=== PATIENT | male | born 1980 | race Two or more races ===

== ENCOUNTER 2022-12-06 03:34 | Emergency (ER) | payer MEDICAID, OTHER, SELFPAY ==
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
[2022-12-06 03:44] VITALS: BP 128/76; PULSE 62; RESP 18; TEMP 36.7; O2SAT 97
[2022-12-06 04:01] VITALS: BP 128/76; BP 131/86; PULSE 60; PULSE 64; RESP 16; TEMP 36.9; O2SAT 98; O2SAT 99; BMI 26.6
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
--- NOTE | 2022-12-06 06:32 | PC.NURSE ---
pt a&o,no sob or chest pain, no sign of distress, Reviewed discharge instructions with pt. pt verbalized understanding.
== END 2022-12-06 06:33 | disposition home or self-care (01) ==
PROVIDERS: Emergency Provider Emergency Medicine
DX: S20.219A Contusion of unspecified front wall of thorax, initial encounter (principal); V43.52XA Car driver injured in collision with other type car in traffic accident, initial encounter; Y93.89 Activity, other specified; Y92.414 Local residential or business street as the place of occurrence of the external cause; Y99.9 Unspecified external cause status
CPT/HCPCS: 71046; 99283; 99284

== ENCOUNTER 2022-12-06 06:39 | Outpatient (REF) | payer OTHER, MEDICAID, SELFPAY ==
--- NOTE | ~2022-12-06 | XR_ITS ---
EXAMINATION: XR CHEST CLINICAL INFORMATION: Positive quantiferon. COMPARISON: Chest radiographs 12/06/2022 TECHNIQUE: 2 views of the chest were obtained. FINDINGS: The lungs are clear. There is no airspace opacity, airspace consolidation, pleural reaction, or effusion. The costophrenic sulci are clear. The heart is normal in size. The hilar and mediastinal contours and visualized bony structures are unremarkable. XR/XR chest 2V IMPRESSION: Unremarkable examination.
== END 2022-12-06 06:40 | disposition home or self-care (01) ==
LOC: HO.XRAY 06:39
PROVIDERS: Visit Provider Internal Medicine Infectious Disease
DX: R76.12 Nonspecific reaction to cell mediated immunity measurement of gamma interferon antigen response without active tuberculosis (principal)
CPT/HCPCS: 71046

== ENCOUNTER 2023-02-04 10:39 | Outpatient (REF) | payer MEDICAID, OTHER, SELFPAY ==
[2023-02-04 12:25] LABS: Alanine Aminotransferase 24 U/L (0-40); Alkaline Phosphatase 56 U/L (39-117); Anion Gap 13 (12-20); Aspartate Amino Transferase 20 U/L (5-37); Bilirubin Total 0.2 mg/dL (0.0-1.0); Blood Urea Nitrogen 12 mg/dL (9-16); Calcium 8.9 mg/dL (8.4-10.2); Carbon Dioxide 28 mmol/L (22-29); Chloride 107 mmol/L (96-108); Estimated Glomerular Filt Rate > 60; Glucose Random 83 mg/dL (60-115); Magnesium 2.2 mg/dL (1.6-2.6); Sodium 144 mmol/L (135-145); Total Protein 6.9 g/dL (6.5-8.0)
== END 2023-02-04 10:40 | disposition home or self-care (01) ==
LOC: HO.HHCL 10:39
PROVIDERS: Visit Provider Student in an Organized Health Care Education/Training Program
DX: Z22.7 Latent tuberculosis (principal)
CPT/HCPCS: 36415; 80053; 83735

== ENCOUNTER 2023-07-11 15:40 | Outpatient (REF) | payer OTHER, SELFPAY | END 2023-07-11 15:41 | disposition home or self-care (01) | LOC: HO.HHCL 15:40 | PROVIDERS: Visit Provider Student in an Organized Health Care Education/Training Program | DX: Z22.7 Latent tuberculosis (principal) | CPT/HCPCS: 36415; 80053 ==

== ENCOUNTER 2024-05-13 15:40 | Outpatient (REF) | payer OTHER, SELFPAY ==
[2024-05-13 17:53] LABS: Hematocrit 41.5 % (42.0-52.0); Hemoglobin 14.9 g/dl (14.0-18.0); Mean Corpuscular HGB Conc 35.9 g/dl (31.0-36.0); Mean Corpuscular Hemoglobin 29.2 pg (27.0-33.0); Mean Corpuscular Volume 81.4 fL (80.0-98.0); Mean Platelet Volume 10.4 fL (9.4-12.4); Platelet Count 345 X10*3/uL (160-400); Red Cell Distribution Width 12.6 % (11.0-16.0)
[2024-05-13 18:14] LABS: Alanine Aminotransferase 45 U/L (0-40); Albumin Level 4.4 g/dL (3.5-5.0); Alkaline Phosphatase 67 U/L (39-117); Anion Gap 12 (12-20); Aspartate Amino Transferase 35 U/L (5-37); Bilirubin Total 0.4 mg/dL (0.0-1.0); Blood Urea Nitrogen 15 mg/dL (9-16); Calcium 9.5 mg/dL (8.4-10.2); Carbon Dioxide 27 mmol/L (22-29); Chloride 102 mmol/L (96-108); Cholesterol 182 mg/dL (<200); Estimated Glomerular Filt Rate > 60; Glucose Random 97 mg/dL (60-115); HDL Cholesterol 61 mg/dL (>40); LDL Cholesterol Calculated 106 mg/dL (<100); Sodium 138 mmol/L (135-145); Total Protein 7.9 g/dL (6.5-8.0); Triglycerides 78 mg/dL (<150)
[2024-05-13 18:24] LABS: Creatinine Urine 84.55 mg/dL; Microalbumin Urine < 5.0 mg/L
[2024-05-13 18:30] LABS: TSH reflex Free T4 0.58 uIU/mL (0.32-4.0)
[2024-05-14 03:54] LABS: Syphilis Screen Nonreactive (Nonreactive)
[2024-05-14 04:10] LABS: HBS Num1 23.08 mIU/mL (0-7.99); HBc Num1 0.18 S/CO (0.00-0.79); HBsAGNum1 0.36 S/CO (0.00-0.99); HIV AB/AG Nonreactive (Nonreactive); HIV Num 1 0.06 S/CO (0.00-0.99); Hepatitis B Core Antibody Nonreactive (Nonreactive); Hepatitis B Surface Antigen Negative (Negative); ~HepC Num1 0.18 S/CO (0.00-0.79); ~Hepatitis B Surface Antibody REACTIVE (Nonreactive); ~Hepatitis C Antibody Nonreactive (Nonreactive)
[2024-05-14 05:20] LABS: CT PCR NOT DETECTED (Not Detect.); Estimated Average Glucose 120 mg/dL; Hemoglobin A1C 156.0151 umol/L; Hemoglobin A1c % 5.8 % (<6.0); NG PCR NOT DETECTED (Not Detect.); Total Hemoglobin (HGBA1C) 3912.3724 umol/L
== END 2024-05-13 15:41 | disposition home or self-care (01) ==
LOC: HO.HHCL 15:40
PROVIDERS: Visit Provider Student in an Organized Health Care Education/Training Program
DX: Z00.00 Encounter for general adult medical examination without abnormal findings (principal); Z13.1 Encounter for screening for diabetes mellitus
CPT/HCPCS: 36415; 80053; 80061; 82570; 83036; 84443; 85027; 86704; 86706; 86780; 86803; 87340; 87389; 87491; 87591

== ENCOUNTER 2024-05-17 15:02 | Outpatient (REF) | payer SELFPAY ==
[2024-05-17 16:45] LABS: Alanine Aminotransferase 42 U/L (0-40); Albumin Level 4.3 g/dL (3.5-5.0); Alkaline Phosphatase 62 U/L (39-117); Anion Gap 12 (12-20); Aspartate Amino Transferase 29 U/L (5-37); Bilirubin Total 0.3 mg/dL (0.0-1.0); Blood Urea Nitrogen 14 mg/dL (9-16); Calcium 9.6 mg/dL (8.4-10.2); Carbon Dioxide 32 mmol/L (22-29); Chloride 99 mmol/L (96-108); Estimated Glomerular Filt Rate > 60; Glucose Random 90 mg/dL (60-115); Magnesium 1.7 mg/dL (1.6-2.6); Potassium 3.4 mmol/L (3.3-5.1); Sodium 140 mmol/L (135-145); Total Protein 7.6 g/dL (6.5-8.0)
== END 2024-05-17 15:03 | disposition home or self-care (01) ==
LOC: HO.HHCL 15:02
PROVIDERS: Visit Provider Student in an Organized Health Care Education/Training Program
DX: E87.6 Hypokalemia (principal)
CPT/HCPCS: 36415; 80053; 83735

== ENCOUNTER 2024-08-26 11:16 | Emergency (ER) | payer OTHER, SELFPAY ==
--- NOTE | ~2024-08-26 | XR_ITS ---
EXAMINATION: XR CLAVICLE, LEFT CLINICAL INFORMATION: known fx, worsening pain COMPARISON: None available. TECHNIQUE: Two views of the left clavicle. FINDINGS: There is a comminuted obliquely oriented mid clavicular diaphyseal fracture. There are 2 small butterfly fragments present . No significant bayoneting or override. There is approximately 1.6 cm of inferior displacement of the distal fragment. No significant angulation. No additional fractures. The AC joint appears intact. There is mild soft tissue swelling of the supraclavicular region. XR/XR clavicle LT IMPRESSION: 1. Comminuted mid diaphyseal clavicular fracture with 1.6 cm inferior displacement of the distal fragment. Electronically signed by: Micky Gomez MD 08/26/2024 12:59 PM [facility]
--- NOTE | 2024-08-26 11:43 | ED.GENADULT ---
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 Patient fell at work on 08/24, was seen at [facility] yesterday and diagnosed with a closed displaced fx of acromial end of L clavicle. Was prescribed Tramadol and ibuprofen but states his pain is severe and the medications are not helping. Did not attempt to follow up with [facility] today. Has appointment with the specialist on 09/01. Pain worse with movement of left arm. Arrives with left arm in a sling. Complains of tingling to left arm. MD complaint: clavicle fracture Onset (ago): day(s) Related Data Previous Rx's ?Medication ?Instructions ?Recorded oxycodone 5 mg tablet 5 mg PO Q8H PRN severe pain (scale 08/26/24 score 7-10) #9 tabs Allergies Allergy/AdvReac Type Severity Reaction Status Date / Time No Known Allergies Allergy Verified 08/26/24 12:03 Review of Systems Review of Systems: As per HPI Yes all other systems are reviewed and are negative Constitutional: Constitutional: Reports as per HPI Physical Exam ED Vital Signs: Vital Signs - 24 hr 08/26/24 11:58 08/26/24 15:01 Temperature 98.6 F 97.9 F Pulse Rate 86 68 Respiratory Rate 16 16 Blood Pressure 146/90 H 140/85 H Pulse Oximetry 99 98 Oxygen Delivery Method Room Air Room Air BMI result Body Mass Index 28.3 Vital signs have been reviewed and appear to be correct. Blood pressure elevated. Heart rate normal. Respiratory rate normal. Temperature normal. Oxygen saturation normal. Const General: cooperative, healthy appearing and no acute distress Orientation/consciousness: oriented to person, oriented to place, oriented to time and patient oriented x3 Limitations: no limitations HENMT Head: Yes normocephalic and Yes atraumatic Ears: external ears normal General nose exam: Normal external nose present Face and sinus: Yes face symmetric Mouth: oropharynx normal and moist mucous membranes Throat: Yes uvula midline Eyes Pupils: Equal, round and reactive pupils present Neck Neck: Yes normal visual inspection and Yes supple Resp Effort & Inspection: normal respiratory effort and able to speak in complete sentences Auscultation: clear to auscultation bilaterally Cardio Rate: regular rate Rhythm: regular rhythm Heart sounds: S1 normal heart sound present and S2 normal heart sound present GI Palpation (GI): Soft to palpation and nontender Auscultation: normoactive bowel sounds General: Yes no CVA tenderness Back/Spine/Pelvis Back: no CVA tenderness Skin General skin exam: elasticity normal and turgor normal Neuro General: oriented to person, oriented to place, oriented to time, patient oriented x3, moves all extremities, no focal motor deficits and CN's II-XI intact bilaterally Cranial nerves: Yes Equal, round and reactive pupils present Cognition (Neuro): normal cognition Extrem General: Yes full ROM, Yes no pedal edema and Yes no calf tenderness Left upper extremity: shoulder/upper arm Details: tenderness Location: of the clavicle (no tenting of skin) Laterality: medially and hand Details: normal to inspection, normal capillary refill, neuromotor exam normal, neurosensory exam normal, vascular exam Details: radial pulse present and normal capillary refill and normal ROM of fingers; abnormal to inspection (arrives with left arm in sling) Psych Mental Status: mental status grossly normal Affect: normal affect Thought process: Normal thought process present Medical Decision Making Medical Decision Making [facility] Narrative: Patient is a 44-year-old Cypriot speaking right hand dominant male with known left clavicle fracture presenting with complaint of pain. On exam patient is awake, A+Ox3, VS WNL, afebrile, normal neurological exam without focal deficits, physical exam findings as above. Given reported symptoms and physical exam findings, initial differential includes but is not limited to clavicle fracture. Xray of left clavicle notable for comminuted mid diaphyseal fracture with inferior displacement.. My interpretation is in agreement with the radiologist's interpretation. No tenting of skin, patient is neurovascularly intact distally, has a sling. Will send prescription for a few days of oxycodone. Discussed with patient that he cannot take this medication and go to work. Advised him to follow up with [facility]. Return precautions discussed. Patient verbalized understanding of and agreement with plan. Differential Diagnosis Differential Diagnoses: The differential diagnosis associated with the presentation includes As per MDM Independent Interpretation I performed an independent interpretation of an: Plain X-Ray Interpretation: Xray of left clavicle notable for comminuted mid diaphyseal fracture with inferior displacement. Radiology Impression Discussion of test interpretation with radiology: I have reviewed the radiologist's reading. Radiologist Impression: XR/XR clavicle LT IMPRESSION: 1. Comminuted mid diaphyseal clavicular fracture with 1.6 cm inferior displacement of the distal fragment. External Record Review External record reviewed: Inpatient record, Office record and Outpatient record Prescription Management I considered prescription management with: Pain Medication Discharge Plan Discharge Clinical Impression: Clavicle fracture Patient Disposition: Home, Self-Care Instructions: Clavicle Fracture (ED) Additional Instructions: You are being prescribed a short course of oxycodone for your pain due to a fractured clavicle. DO NOT take this medication if you are going to work. DO not mix this medication with alcohol or while operating heavy machinery, as it causes drowsiness. Follow up at [facility] and with the specialist. Return to the emergency depratment if you develop numbness, tingling, change of color to your arm, difficulty breathing, or any other new or concerning symptoms. Prescriptions: New oxycodone 5 mg tablet 5 mg PO Q8H PRN (Reason: severe pain (scale score 7-10)) Qty: 9 0RF Rx Instructions: Partial Fill upon patient request. Interventions: ED Discharge Assessment Last Done: 08/26/24 15:01 Print Language: [place]riot
[2024-08-26 11:58] VITALS: BP 146/90; PULSE 86; RESP 16; TEMP 37; O2SAT 99; BMI 28.3
[2024-08-26 15:01] VITALS: BP 140/85; PULSE 68; RESP 16; TEMP 36.6; O2SAT 98
--- OUTSIDE RECORDS SUMMARY | 2024-08-26 16:31 | XMS_ITS | Clinical Summary ---
Author Organization [employer] Address [address] [place] [address] Care Team Providers Care Organ Teacher Name Role Phone Zeina Phelps MD Primary Care Pro vider Allergies No known active allergies Medications chlorthalidone (Hygroton) 25 MG tabletIndicatio ns:Hypertension , unspecified type TAKE 1 TABLET BY MOUTH ONCE DAILY 90 tablet 5 Active amLODIPine-toya zepril (Lotrel) 10-40 MG capsuleIndicati ons:Hypertensio n, unspecified type TAKE 1 CAPSULE BY MOUTH ONCE DAILY 90 capsule 5 Active amLODIPine-toya zepril (Lotrel) 10-40 MG capsuleIndicati ons:Hypertensio n, unspecified type Take 1 capsule by mouth Once per day. Take 1 capsule daily. 90 capsule 4 025 Discontinued chlorthalidone (Hygroton) 25 MG tabletIndicatio ns:Hypertension , unspecified type Take 1 tablet (25 mg) by mouth Once per day. Take 1 tablet by oral route every day 90 tablet 4 025 Discontinued Active Problems Problem Noted Date Diagnosed Date Hypertensive disorder 11/21/2022 Assessment & Plan (02/04/2023 3:54 PM EDT): BP today significantly elevated at 178/102 BUT pt not taking any BP med x the last 4 days given run out On chlorthalidone 25 mg daily + amlodipine/benazepril 10/40 Mg EKG 11/2022 x baseline: Hr 65x' otherwise normal 11/2022 microalb neg Pt is asymptomatic w normal CV,resp and neuro exam Home BP readings of last weeks normal BP in general ,just 2 readings with slight elevated rest wnl -referred to ophthalmology-pt to get call x apt -resume meds immediately-I confirmed w px today that pt can package pick up 90 days refills of BP meds today - will repeat chem today and if repeated chem noted low K will need to consider changing chlorthalidone maybe to HDCTZ ? ) --x now to improve diet rich in K+,will hold on BB due to borderline low normal HR -advised pt to bring home BP readings at next visit 3 times a week -need to monitor BP while taking rifampin given can decrease amlodipine effect -low salt diet advised -alarm signs and symptoms discussed Assessment & Plan (12/24/2022 12:01 PM EDT): BP today manually -slight elevated diastolic to 90s On chlorthalidone 25 mg daily + amlodipine/benazepril 10/40 Mg EKG x baseline: Hr 65x' otherwise normal 11/2022 microalb neg -referred to ophthalmology-pt to get call x apt -continue meds( will repeat chem in 6 weeks ) repeated chem noted normal K from slight low K before --if continued will need to consider changing chlorthalidone maybe to HDCTZ ? ) --x now to improve diet rich in K+,will hold on BB due to borderline low normal HR -advised pt to bring home BP readings at next visit 3 times a week -low satl diet advised Assessment & Plan (11/21/2022 6:18 PM EDT): BP controlled On chlorthalidone 25 mg daily + amlodipine/benazepril 10/40 Mg EKG today x baseline: Hr 65x' otherwise normal -ordered microalb -referred to ophthalmology -continue meds( will repeat chem noted before slight low K+--if continued will need to consider changing chlorthalidone maybe to HDCTZ ? ) --x now to improve diet rich in K+,will hold on BB due to borderline low normal HR Health care maintenance 11/21/2022 Assessment & Plan (02/04/2023 3:56 PM EDT): -vaccines:s/p tdap 11/2022 and 1st dose hep B 11/2022 x immigration ( brought records ) --here s/p 2nd hep B dose and will give in 5 mo 3rd dose ,s/p covid 19 x 1--advised x Booster w Bivalent but wants to hold x now Assessment & Plan (12/24/2022 12:03 PM EDT): -vaccines:s/p tdap and 1st dose hep B x immigration ( brought records today) --today here 2nd hep B dose and in 5 mo 3rd dose , ,s/p covid 19 x 1--advised x Booster w Bivalent but wants to hold x now Assessment & Plan (11/21/2022 6:19 PM EDT): -Quantiferon today -vaccines: reports that had tdap and 1st dose hep B yesterday x immigration ,s/p covid 19 x 1--advised x Booster w Bivalent but wants to hold x now -to check labs today ( not in fasting ) x annual exam including hiv test -will hold on hep B testing given just got hep B vaccine and that can given a FP hep B surf ag ---assuming ws neg and w neg immunity for which was started on vaccination -may cosndier to repeat hep B panel in 8 months after completes vaccination Overweight (BMI 25.0-29.9) 11/21/2022 Assessment & Plan (02/04/2023 3:54 PM EDT): In part increase BMI x muscle mass BMI 25.9 -life style changes advised Assessment & Plan (12/24/2022 12:01 PM EDT): In part increase BMI x muscle mass BMI 25.9 -life style changes advised Assessment & Plan (11/21/2022 6:14 PM EDT): In part increase BMI x muscle mass BMI 25.9 -life style changes advised Resolved Problems Problem Noted Date Diagnosed Date Resolved Date TB lung, 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 03/20/2024 Assessment & Plan (02/04/2023 3:50 PM EDT): Pt is from living in [facility] since 2020 Screening Quantiferon came back + Pt denies any concerning symptoms .denies Tb contacts CXR 12/06/2022 Unremarkable - started tx w rifampin 600 mg daily 6 weeks ago w no SE -plan to complete x 4 months -explained possible SE and alarm signs and symptoms in case need to call here and stop med as ( jaundice,anorexia,vomit and persistent nausea) -will repeat chem today and refilled another 2 months of med Assessment & Plan (12/24/2022 12:04 PM EDT): Pt is from living in [facility] since 2020 Screening Quantiferon came back + Pt denies any concerning symptoms .denies Tb contacts CXR 12/06/2022 Unremarkable -discussed pt in length about latent TB dx and offered tx -pt agreed to start tx w rifampin 600 mg daily x 4 months -explained possible SE and alarm signs and symptoms in case need to call here and stop med as ( jaundice,anorexia,vomit and persistent nausea) -RTC in 6 weeks to repeat chem and refill another 2 months of med. Today px 2 months Encounters Date Type Department Care Team Description 08/17/2024 Refill [facility] [address] [place] [address] Zeina Phelps MD Hypertension, unspecified type from Last 3 Months Immunizations Name Administration Dates Next Due Hep B, adult 12/24/2022,11/20/2022 Influenza, seasonal, injectable, preservative fr ee 03/18/2024 Pfizer Covid-19 Vaccine 12+ 05/20/2024 Tdap 11/20/2022 Family History Medical History Relation Name Comments HTN Father HTN,vascular Mother Relation Name Status Comments Father Mother Social History Tobacco Use Types Packs/Day Years Used Date Smoking Tobacco: Never Passive Smoke Exposure: Never Smokeless Tobacco: Never Tobacco Cessation:Counseling Given: Not Answered Alcohol Use Standard Drinks/Week Comments Not Currently 0 (1 standard drink = 0.6 oz pur e alcohol) Depression Answer Date Recorded Patient Health Questionnaire-9 Score 0 03/18/2024 Patient Health Questionnaire-9 Score 0 03/18/2024 Last PHQ-9: Questionnaire Data Not on file 0 03/18/2024 Housing Stability Answer Date Recorded What is your housing situation today? I have darren leon 05/09/[address] you li ve. Do you have problems with any of the following? None of the above 05/09/2023 Food Insecurity Answer Date Recorded Within the past 12 months, y ou worried that your food would run out before you got money to buy more: Never True 05/09/2023 Within the past 12 months,th e food you bought just didn't last and you didn't have enough money to get more: Never True 09/2022 Transportation Answer Date Recorded In the past 12 months, has l ack of transportation kept you from medical appts, meetings, work or from getting things needed for daily living? No 11/18/2023 Utilities Answer Date Recorded In the past 12 months, has t he electric, gas, oil or water company threatened to shut off services in your home? No 05/09/2023 Depression Answer Date Recorded Patient Health Questionnaire-2 Score 0 03/18/2024 Internet Access Answer Date Recorded Internet Access Q1 Yes 03/09/2024 Internet Access Q2 Not on file 03/09/2024 Sex and Gender Information Value Date Recorded Sex Assigned at Male 05/06/2022 10:40 AM EDT Legal Sex Male 10:40 AM EDT Gender Identity Male 11/21/2022 2:29 PM EDT Sexual Orientation Straight 05/06/2022 10 :40 AM EDT Last Filed Vital Signs Vital Sign Reading Time Taken Comments Blood Pressure 132/87 05/20/2024 11:45 AM EST Pulse 97 05/20/2024 11:45 AM EST Temperature 36.5 ??C (97.7 ??F) 05/20/2024 11:[address] Respiratory Rate 20 05/20/2024 11:45 AM EST Oxygen Saturation 99% 05/20/2024 11:45 AM EST Inhaled Oxygen Concentration - - Weight 77 kg (169 lb 12.8 oz) 05/20/2024 11:45 A M EST Height 165.1 cm (5' 5 ) 03/18/2024 1:52 PM EDT Body Mass Index 28.26 03/18/2024 1:52 PM EDT Plan of Treatment Health Maintenance Due Date Last Done Comments Alcohol/Substance Use Screening 1993 Family Planning (PISQ) 02/11/1996 Hepatitis B Vaccines (3 of 3 - 19+ 3-dose series) 05/23/2023 12/24/2022, 11/20/2022 SDOH Screening 11/17/2024 11/18/2023 Depression Screening 03/18/2025 03/18/2024, 03/18/2024 Tobacco Screening 03/18/2025 03/18/2024 Diabetes: Hemoglobin A1C 05/13/2025 024, 11/21/2022 Lipid Panel 05/13/2029 05/13/2024, 11/21/2022 Zoster Vaccines (1 of 2) 2031 DTaP/Tdap/Td Vaccines (2 - T d or Tdap) 11/20/2032 11/20/2022 RSV Patients and Patients Aged 60 years or older (1 - 1-dose 75+ series) 02/11/2056 Influenza Vaccine Completed 03/18/2024 HIV Screening Completed 05/13/2024, 11/21/2022 Hepatitis C Screening Completed 05/13/2024 , 11/21/2022 COVID-19 Vaccine Completed 05/20/2024 HIB Vaccines Aged Out No longer eligi ble based on patient's age to complete this topic HPV Vaccines Aged Out No longer eligi ble based on patient's age to complete this topic Hepatitis A Vaccines Aged Out No long er eligible based on patient's age to complete this topic IPV Vaccines Aged Out No longer eligi ble based on patient's age to complete this topic Meningococcal Vaccine Aged Out No gloria deisi eligible based on patient's age to complete this topic Pneumococcal Vaccine: Pediatrics (0 to 5 Years) and At-Risk Patients (6 to 49) Years) Aged Out No longer eligible b ased on patient's age to complete this topic RSV under 20 months Aged Out No longe r eligible based on patient's age to complete this topic Rotavirus Vaccines Aged Out No longer eligible based on patient's age to complete this topic Procedures Procedure Name Priority Date/Time Associated Diagnosis Comments AMB REFERRAL TO OPHTHALMOLOGY Routine 07/05/2024 Hypertension, unspecified type HEPATITIS C AB W/REFL TO HCV RNA, QN, PCR Routine 05/13/2024 3:45 PM EST Annual physical exam HIV 1/2 ANTIGEN/ANTIBODY, FOURTH GENERATION W/RFL Routine 05/13/2024 3:45 PM EST Annual physical exam HEMOGLOBIN A1C Routine 05/13/2024 3:45 PM EST Annual physical exam LIPID PANEL, STANDARD Routine 05/13/2024 3:45 PM EST Annual physical exam from Last 3 Months or Most Recently Relevant to Health Maintenance Results * Referral to Ophthalmology (07/05/2024) us Zeina Stubbs MD OUTPATIENT REFERR AL ORDERABLES Final Result * Hepatitis C Antibody with Reflex to HCV, RNA, Quantitative, Real-Time PCR (05/13/2024 3:45 PM EST) Hepatitis C Antibody Nonreactive Nonreactive [facility] Comment:Antibodies to HCV no t detected; does not exclude early acuteHCV infection. Blood Venous blood specimen / Unknown 05/13/2024 3:45 PM EST 05/13/2024 5:42 PM EST us Zeina Stubbs MD LAB BLOOD ORDERAB LES Final Result [facility] [address] [place] [phone] * HIV-1/2 Antigen and Antibodies, Fourth Generation, with Reflexes (05/13/2024 3:45 PM EST) HIV AB/AG Nonreactive Nonreactive [facility] Comment:HIV-1 p24 Ag and/or HIV-1/HIV-2 Ab not detected.A test result that is nonreactive does not exclude thepossibility of exposure to or infection with HIV-1 and/orHIV-2. Nonreactive results in this assay for individualswith prior exposure to HIV-1 and/or HIV-2 may be due toantigen and antibody levels that are below the limit ofdetection of this assay.The [facility] HIV Ag/Ab Combo assay result andsupplemental assay results should be interpreted inconjunction with the patient's clinical presentation,history and other laboratory results. If the results areinconsistent with clinical evidence, additional testing issuggested to confirm the result. Blood Venous blood specimen / Unknown 05/13/2024 3:45 PM EST 05/13/2024 5:42 PM EST Zeina Stubbs MD LAB BLOOD ORDERAB LES Final Result Performing Organization Address City/[facility]/ZIP Co de Phone Number [facility] [address] [place] [phone] * Hemoglobin A1c (05/13/2024 3:45 PM EST) Hemoglobin A1c 5.8 <6.0 % [facility] Comment:Hemoglobin A1C Refer ence Range Adults: 4.8 - 6.0 % Non diabetic: < 6.0 % Goal: < 7.0 %Additional Action Suggested: > 8.0 %Note: Hemoglobin A1c results are invalid for patients with abnormal amounts of HbF. Blood transfusions may impact the HbA1c concentration in the patient sample. Estimated Average Glucose 120 mg/dL [facility] Comment:eAG = Estimated ave rage glucose which is %A1C expressed asaverage glucose, using the formula of the [id number] Glucose study (ADAG), Diabetes Care, Vol.31,#8,Feb. 2007 Blood Venous blood specimen / Unknown 05/13/2024 3:45 PM EST 05/13/2024 5:42 PM EST us Zeina Stubbs MD LAB BLOOD ORDERAB LES Final Result Performing Organization Address [facility]/ZIP Co de Phone Number [facility] [address] [place] [phone] * (ABNORMAL) Lipid Panel, Standard (05/13/2024 3:45 PM EST) Triglycerides 78 <150 mg/dL [facility] Comment:Desirable Triglyceri de: less than 150 mg/dLBorderline High Triglyceride 150-199 mg/dLHigh Triglyceride: 200-499 mg/dLVery High Triglyceride: greater than or equal to 5OO mg/dL Cholesterol 182 <200 mg/dL [facility] Comment:Desirable Cholestero l: less than 200 mg/dLBorderline High Cholesterol: 200-239 mg/dLHigh Cholesterol: greater than 239 mg/dL LDL Cholesterol Calculated 106(H) <100 mg/dL [facility] Comment:Desirable LDL: less than 100 mg/dLNear Optimal/Above Optimal LDL: 110- 129 mg/dLBorderline High LDL: 130-159 mg/dLHigh LDL: 160-189 mg/dLVery High LDL: greater than or equal to 190 mg/dL HDL Cholesterol 61 >40 mg/dL [facility] Comment:Desirable HDL: great er than 40 mg/dL Note: This HDL assay may give artificially low results in patients with liver disease. Blood Venous blood specimen / Unknown 05/13/2024 3:45 PM EST 05/13/2024 5:42 PM EST us Zeina Stubbs MD LAB BLOOD ORDERAB LES Final Result [facility] [address] [place], [place] [phone] from Last 3 Months or Most Recently Relevant to Health Maintenance Insurance Care Teams Organ Teacher Relationship Specialty Start Date End Date Zeina Phelps MD [address] [place] [phone] PCP - General Internal Medicine 11/21/22
--- OUTSIDE RECORDS SUMMARY | 2024-08-26 16:31 | XMS_ITS | Encounter Summary ---
Author Organization [employer] Address [address] [place] [address] [address] [place] [address] Care Team Providers Care Loan Operations Manager Name Role Phone Zeina Phelps MD Primary Care Pro vider Reason for Visit * Reason Comments Med Refill Encounter Details Date Type Department Care Team (Late st Contact Info) Description 10/23/2022 Refill [facility] [address] [place] [address] [phone] David Martin MD [address] [place] [address] [phone] Hypertension, unspecified type Social History Tobacco Use Types Packs/Day Years Used Date Smoking Tobacco: Never Assessed Sex and Gender Information Value Date Recorded Sex Assigned at Male 05/06/2022 10:40 AM EDT Legal Sex Male 10:40 AM EDT Gender Identity Male 11/21/2022 2:29 PM EDT Sexual Orientation Straight 05/06/2022 10 :40 AM EDT COVID-19 Exposure Response Date Recorded In the last 10 days, have yo u been in contact with someone who was confirmed or suspected to have Coronavirus/COVID-19? No / Unsure 10/25/2022 10:07 AM EDT documented as of this encounter Plan of Treatment Not on file documented as of this encounter Visit Diagnoses Diagnosis Hypertension, unspecified type documented in this encounter Care Teams Loan Operations Manager Relationship Specialty Start Date End Date Zeina Phelps MD [address] [place] [address] [phone] PCP - General Internal Medicine 11/21/22 documented as of this encounter
--- OUTSIDE RECORDS SUMMARY | 2024-08-26 16:31 | XMS_ITS ---
Author Name [facility] Organization Unknown History of Medication Use Medication Directions Dispensed Refills Start Date End Date Stat 02/04/2023 05/05/2023 completed Problems Problem Status Onset Date Problem Type Date of Resoluti on Source Encounter for examination for driving license active 2023-04-[address] [facility]
--- OUTSIDE RECORDS SUMMARY | 2024-08-26 16:31 | XMS_ITS | Encounter Summary ---
Author Organization [employer] Address [address] [place] [address] [address] [place] [address] Care Team Providers Care Conveyor Belt Repairer Name Role Phone Zeina Phelps MD Primary Care Pro vider Reason for Visit * Reason Comments Med Refill Encounter Details Date Type Department Care Team ([facility] st Contact Info) Description 08/17/2024 Refill [facility] [address] [place], [place] [phone] Zeina Phelps MD [address] [place] [address] Hypertension, unspecified type Social History Tobacco Use Types Packs/Day Years Used Date Smoking Tobacco: Never Passive Smoke Exposure: Never Smokeless Tobacco: Never Alcohol Use Standard Drinks/Week Comments Not Currently [...] Orientation Straight 05/06/2022 10 :40 AM EDT documented as of this encounter Plan of Treatment Not on file documented as of this encounter Visit Diagnoses Diagnosis Hypertension, unspecified type documented in this encounter Additional Health Concerns Assessment Noted Time PHQ-9 Depression Total Score: 0 03/18/20 24 1:58 PM EDT documented as of this encounter Care Teams Conveyor Belt Repairer Relationship Specialty Start Date End Date Zeina Phelps MD [address] [place] [phone] PCP - General Internal Medicine 11/21/22 documented as of this encounter
== END 2024-08-26 15:34 | disposition home or self-care (01) ==
LOC: HO.ED 15:28
PROVIDERS: Emergency Provider Emergency Medicine; PCP Student in an Organized Health Care Education/Training Program
DX: S42.002A Fracture of unspecified part of left clavicle, initial encounter for closed fracture (principal); M25.512 Pain in left shoulder; W19.XXXA Unspecified fall, initial encounter; Y93.9 Activity, unspecified; Y92.9 Unspecified place or not applicable; Y99.0 Civilian activity done for income or pay
CPT/HCPCS: 73000; 99282; 99283

== ENCOUNTER → 2024-08-26 12:29 | Outpatient (BNV) | payer OTHER, SELFPAY | PROVIDERS: Emergency Provider Emergency Medicine; Visit Provider Radiology Diagnostic Radiology | DX: S42.022A Displaced fracture of shaft of left clavicle, initial encounter for closed fracture (principal); Z04.2 Encounter for examination and observation following work accident | CPT/HCPCS: 73000 ==

== ENCOUNTER 2025-01-19 10:33 | Outpatient (REF) | payer OTHER, SELFPAY ==
--- OUTSIDE RECORDS SUMMARY | 2025-01-19 11:10 | XMS_ITS ---
Author Name [facility] Organization Unknown History of Medication Use Medication Directions Dispensed Refills Start Date End Date Stat 02/04/2023 05/05/2023 completed Problems Problem Status Onset Date Problem Type Date of Resoluti on Source Encounter for examination for driving license active 2023-04-15 ProblemAct [facility] Encounters Encounter Type Encounter Reason Primary Diagnosis Location Date Ambulatory [facility] 04/15/2023 Care Team Organization Name Specialty Phone Email Start Date End Da [facility] 04/15 [facility] Medicine [facility]
--- OUTSIDE RECORDS SUMMARY | 2025-01-19 11:10 | XMS_ITS | Clinical Summary ---
Author Organization [employer] Address [address] [facility] 7t [place] [address] Care Team Providers Care Juvenile Counselor Name Role Phone Zeina Phelps MD Primary Care Pro vider Allergies No known active allergies Medications amLODIPine-benaz epril (Lotrel) 10-40 MG capsuleIndicatio ns:Hypertension, unspecified type Take 1 capsule by mouth Once per day. 90 capsule 11/19/2024 Active chlorthalidone (Hygroton) 25 MG tabletIndication s:Hypertension, unspecified type Take 1 tablet (25 mg) by mouth Once per day. 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 today [...] PM EDT): Pt is from living in [facility] since 2020 Screening Quantiferon came back + [...] (12/24/2022 12:04 PM EDT): [place] Screening Quantiferon came back + [...] Encounters Date Type Department Care Team Description 12/29/2024 Telephone [facility] [address] [place] [phone] Zeina Phelps MD recall 11/19/2024 1:00 PM EDT Office Visit [facility] [address] [place] [phone] Zeina Phelps MD Hypertension, unspecified type (Primary Dx); Hypertension, unspecified type; Dietary counseling; Exercise counseling; Overweight (BMI 25.0-29.9); Health care maintenance 11/19/2024 Travel 11/18/2024 Telephone [facility] [address] [place] [address] Zeina Phelps MD CHART PREP from Last 3 Months Immunizations Immunization Administration Dates Next Due Hep B, adult [...] Date Recorded Patient Health Questionnaire-9 Score 0 11/19/2024 Patient Health Questionnaire-9 Score 0 11/19/2024 Last PHQ-9: Questionnaire Data Not on file 0 11/19/2024 Housing Stability Answer Date Recorded What is your housing situation today? I have darren leon 11/19/[address] you li ve. Do you have problems with any of the following? None of the above 11/19/2024 Food Insecurity Answer Date Recorded Within the past 12 months, y ou worried that your food would run out before you got money to buy more: Never True 11/19/2024 Within the past 12 months,th e food you bought just didn't last and you didn't have enough money to get more: Never True Transportation Answer Date Recorded In the past 12 months, has l ack of transportation kept you from medical appts, meetings, work or from getting things needed for daily living? No 11/19/2024 Utilities Answer Date Recorded In the past 12 months, has t he electric, gas, oil or water company threatened to shut off services in your home? No 11/19/2024 Depression Answer Date Recorded Patient Health Questionnaire-2 Score 0 11/19/2024 Internet Access Answer Date Recorded Internet Access [...] Sign Reading Time Taken Comments Blood Pressure 139/98 11/19/2024 1:32 PM EDT Pulse 76 11/19/2024 1:32 PM EDT Temperature 36.5 C (97.7 F) 05/20/2024 11:45 AM EST Respiratory Rate 20 05/20/2024 11:45 AM EST Oxygen Saturation 98% 11/19/2024 1:32 PM EDT Inhaled Oxygen Concentration - - Weight 77 kg (169 lb 12.8 oz) 05/20/2024 11:45 A M EST Height 165.1 cm (5' 5 ) 03/18/2024 1:52 PM EDT Body Mass Index 28.26 03/18/2024 1:52 PM EDT Plan of Treatment Upcoming Encounters Date Type Department Care Team (Late st Contact Info) Description 01/21/2025 1:00 PM EDT Office Visit [facility] [address], [place] [phone] Zeina Phelps MD [address] [place], [place] [phone] 03/24/2025 9:00 AM EDT Office Visit [facility] [address], [place] [phone] Zeina Phelps MD [address] [place], [place] [phone] Health Maintenance Due Date Last Done Comments Family Planning (PISQ) 02/11/1996 HPV Vaccines (1 - Male 3-dos e series) 02/11/1996 Hepatitis B Vaccines (3 of 3 - 19+ 3-dose series) 05/23/2023 12/24/2022, 11/20/2022 Influenza Vaccine (#1) 2025 03/18/2024 Tobacco Screening 03/18/2025 03/18/2024 Diabetes: Hemoglobin A1C 05/13/2025 024, 11/21/2022 Alcohol/Substance Use Screening 11/19/2025 11/19/2024 Depression Screening 11/19/2025 11/19/2024, 11/19/2024 Disability Screening 11/19/2025 11/19/2024 SDOH Screening 11/19/2025 11/19/2024 Lipid Panel 05/13/2029 05/13/2024, 11/21/2022 Zoster Vaccines (1 of 2) 2031 DTaP/Tdap/Td Vaccines (2 - T d or Tdap) 11/20/2032 11/20/2022 RSV Patients and Patients Aged 60 years or older (1 - 1-dose 75+ series) 02/11/2056 HIV Screening Completed 05/13/2024, 11/21/2022 Hepatitis C [...] patient's age to complete this topic Meningococcal B Vaccine Aged Out No l onger eligible based on patient's age to complete this topic Meningococcal Vaccine Aged Out No gloria deisi eligible based on patient's age to complete this topic Pneumococcal Vaccine: Pediatrics (0 to 5 Years) and At-Risk Patients (6 to 49) Years Aged Out No longer eligible b ased on patient's age to complete this topic RSV under 20 months Aged Out No longe r eligible based on patient's age to complete this topic Rotavirus Vaccines Aged Out No longer eligible based on patient's age to complete this topic Procedures Procedure Name Priority Date/Time Associated Diagnosis Comments HEPATITIS C AB W/REFL TO HCV RNA, [...] Recently Relevant to Health Maintenance Results * Hepatitis C Antibody with Reflex to HCV, RNA, Quantitative, Real-Time PCR (05/13/2024 3:45 PM EST) Hepatitis C Antibody Nonreactive Nonreactive [facility] Comment:Antibodies to HCV no t detected; does not exclude early acuteHCV infection. Blood Venous blood specimen / Unknown 05/13/2024 3:45 PM EST 05/13/2024 5:42 PM EST us Zeina Stubbs MD LAB BLOOD ORDERAB LES Final Result [facility] [address] [place] [phone] * HIV-1/2 Antigen and Antibodies, Fourth Generation, with Reflexes (05/13/2024 3:45 PM EST) HIV AB/AG Nonreactive Nonreactive [facility] Comment:HIV-1 p24 Ag and/or HIV-1/HIV-2 Ab not detected.A test result that is nonreactive does not exclude thepossibility of exposure to or infection with HIV-1 and/orHIV-2. Nonreactive results in this assay for individualswith prior exposure to HIV-1 and/or HIV-2 may be due toantigen and antibody levels that are below the limit ofdetection of this assay.The [employer] HIV Ag/Ab Combo assay result andsupplemental assay results should be interpreted inconjunction with the patient's clinical presentation,history and other laboratory results. If the results areinconsistent with clinical evidence, additional testing issuggested to confirm the result. Blood Venous blood specimen / Unknown 05/13/2024 3:45 PM EST 05/13/2024 5:42 PM EST us Zeina Stubbs MD LAB BLOOD ORDERAB LES Final Result [facility] [address] [place] [address] [phone] * Hemoglobin A1c (05/13/2024 3:45 PM EST) Hemoglobin A1c 5.8 <6.0 % [facility] Comment:Hemoglobin A1C Refer ence Range Adults: 4.8 - 6.0 % Non diabetic: < 6.0 % Goal: < 7.0 %Additional Action Suggested: > 8.0 %Note: Hemoglobin A1c results are invalid for patients with abnormal amounts of HbF. Blood transfusions may impact the HbA1c concentration in the patient sample. Estimated Average Glucose 120 mg/dL [facility] Comment:eAG = Estimated ave rage glucose which is %A1C expressed asaverage glucose, using the formula of the Q2Z-JdbxehdFpcsngb Glucose study (ADAG), Diabetes Care, Vol.31,#8,2007 Blood Venous blood specimen / Unknown 05/13/2024 3:45 PM EST 05/13/2024 5:42 PM EST us Zeina Stubbs MD LAB BLOOD ORDERAB LES Final Result Performing Organization Address [facility] Co de Phone Number [facility] [address] [place] [phone] * (ABNORMAL) Lipid Panel, Standard (05/13/2024 3:45 PM EST) Triglycerides 78 <150 mg/dL [facility] Comment:Desirable Triglyceri de: less than 150 mg/dLBorderline High Triglyceride 150-199 mg/dLHigh Triglyceride: 200-499 mg/dLVery High Triglyceride: greater than or equal to 5OO mg/dL Cholesterol 182 <200 mg/dL [facility] Comment:Desirable Cholestero l: less than 200 mg/dLBorderline High Cholesterol: 200-239 mg/dLHigh Cholesterol: greater than 239 mg/dL LDL Cholesterol Calculated 106(H) <100 mg/dL [facility] Comment:Desirable LDL: less than 100 mg/dLNear Optimal/Above Optimal LDL: 110- 129 mg/dLBorderline High LDL: 130-159 mg/dLHigh LDL: 160-189 mg/dLVery High LDL: greater than or equal to 190 mg/dL HDL Cholesterol 61 >40 mg/dL [facility] Comment:Desirable HDL: great er than 40 mg/dL Note: This HDL assay may give artificially low results in patients with liver disease. Blood Venous blood specimen / Unknown 05/13/2024 3:45 PM EST 05/13/2024 5:42 PM EST us Zeina Stubbs MD LAB BLOOD ORDERAB LES Final Result Performing Organization Address City/[facility]/ZIP Co de Phone Number [facility] [address] [place] [phone] from Last 3 Months or Most Recently Relevant to Health Maintenance Insurance [employer] Care Teams Juvenile Counselor Relationship Specialty Start Date End Date Zeina Phelps MD [address] [place] [address] [phone] PCP - General Internal Medicine 11/21/22
[2025-01-19 11:58] LABS: Alanine Aminotransferase 153 U/L (0-40); Albumin Level 4.6 g/dL (3.5-5.0); Alkaline Phosphatase 74 U/L (39-117); Anion Gap 11 (12-20); Aspartate Amino Transferase 74 U/L (5-37); Blood Urea Nitrogen 10 mg/dL (9-16); Calcium 9.3 mg/dL (8.4-10.2); Carbon Dioxide 30 mmol/L (22-29); Chloride 103 mmol/L (96-108); Estimated Glomerular Filt Rate > 60; Magnesium 1.9 mg/dL (1.6-2.6); Potassium 3.1 mmol/L (3.3-5.1); Sodium 141 mmol/L (135-145); Total Protein 7.7 g/dL (6.5-8.0)
== END 2025-01-19 10:34 | disposition home or self-care (01) ==
LOC: HO.HHCL 10:33
PROVIDERS: PCP Student in an Organized Health Care Education/Training Program; Visit Provider Student in an Organized Health Care Education/Training Program
DX: I10 Essential (primary) hypertension (principal)
CPT/HCPCS: 36415; 80053; 83735

== ENCOUNTER 2025-02-01 13:16 | Outpatient (REF) | payer OTHER, SELFPAY ==
--- OUTSIDE RECORDS SUMMARY | 2025-02-01 14:04 | XMS_ITS | Clinical Summary ---
Author Organization [employer] Address [address] [facility] 7t [place] [address] Care Team Providers Care Cobol Engineer Name Role Phone Zeina Phelps MD Primary Care Pro vider Allergies No known active allergies Medications amLODIPine-benaz epril (Lotrel) 10-40 MG capsuleIndicatio ns:Hypertension, unspecified type Take 1 capsule by mouth Once per day. 90 capsule 5 Active hydroCHLOROthiaz magaly (HYDRODiuril) 25 MG tablet Take 1 tablet (25 mg) by mouth Once per day. 90 tablet 5 01/22/20 26 Active chlorthalidone (Hygroton) 25 MG tabletIndication s:Hypertension, unspecified type Take 1 tablet (25 mg) by mouth Once per day. 90 tablet 5 01/22/20 25 Discontinu ed(Other) potassium chloride CR (Klor-Con M20) 20 MEQ ER tablet Take 1 tablet (20 mEq) by mouth Once per day for 2 days. Do not crush or chew. 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 today [...] (02/04/2023 3:50 PM EDT): Pt is from [facility] [place] in [facility] since 2020 Screening Quantiferon came [...] 12:04 PM EDT): Pt is from DR thibodeaux in [facility] since 2020 Screening Quantiferon came [...] Encounters Date Type Department Care Team Description 01/21/2025 1:00 PM EDT Office Visit [facility] [place] [address] Zeina Phelps MD Hypertension, unspecified type (Primary Dx); Transaminitis; Overweight (BMI 25.0-29.9); Health care maintenance 01/21/2025 Travel 01/20/2025 Telephone [facility] [place] [address] Zeina Phelps MD Chart Prep 01/19/2025 Results Follow-Up [facility] [place] [address] Zeina Phelps MD Comprehensive Metabolic Panel 01/19/2025 Orders Only [facility] [place] [address] Zeina Phelps MD 12/29/2024 Telephone [facility] [place] [address] Zeina Phelps MD recall 11/19/2024 1:00 PM EDT Office Visit [facility] [address] [place] [address] Zeina Phelps MD Hypertension, unspecified type (Primary Dx); Hypertension, unspecified type; Dietary counseling; Exercise counseling; Overweight (BMI 25.0-29.9); Health care maintenance 11/19/2024 Travel 11/18/2024 Telephone [facility] [address] [facility] [place] [address] Zeina Phelps MD CHART PREP from Last [...] is your housing situation today? I have darrenjulia leon 11/19/[address] you [...] Sign Reading Time Taken Comments Blood Pressure 122/70 01/21/2025 1:02 PM EDT Pulse 75 01/21/2025 1:02 PM EDT Temperature 36.5 C (97.7 F) 01/21/2025 1:02 PM EDT Respiratory Rate 20 01/21/2025 1:02 PM EDT Oxygen Saturation 97% 01/21/2025 1:02 PM EDT Inhaled Oxygen Concentration - - Weight 81.2 kg (179 lb) 01/21/2025 1:02 PM EDT Height 165.1 cm (5' 5 ) 01/21/2025 1:02 PM EDT Body Mass Index 29.79 01/21/2025 1:02 PM EDT Plan of Treatment Upcoming Encounters Date Type Department Care Team (Late st Contact Info) Description 02/04/2025 10:30 AM EDT Clinical Support [facility] [address] [place] [phone] 03/24/2025 9:00 AM EDT Office Visit [facility] [address] [place] [phone] Zeina Phelps MD [address] [place] [phone] Health Maintenance Due Date Last Done Comments Family Planning (PISQ) 02/11/1996 HPV Vaccines (1 - Male 3-dos e series) 02/11/1996 Hepatitis B Vaccines (3 of 3 - 19+ 3-dose series) 05/23/2023 12/24/2022, 11/20/2022 Influenza Vaccine (#1) 2025 03/18/2024 Diabetes: Hemoglobin A1C 05/13/2025 024, 11/21/2022 Alcohol/Substance Use Screening 11/19/2025 11/19/2024 Depression Screening 11/19/2025 11/19/2024, 11/19/2024 SDOH Screening 11/19/2025 11/19/2024 Disability Screening 01/21/2026 01/21/2025 Tobacco Screening 01/21/2026 01/21/2025 Lipid Panel 05/13/2029 05/13/2024, 11/21/2022 Zoster Vaccines [...] Procedure Name Priority Date/Time Associated Diagnosis Comments MAGNESIUM Routine 01/19/2025 10:35 AM EDT Hypertension, unspecified type COMPREHENSIVE METABOLIC PANEL Routine 01/19/2025 10:35 AM EDT Hypertension, unspecified type HEPATITIS C AB W/REFL [...] Recently Relevant to Health Maintenance Results * Magnesium (01/19/2025 10:35 AM EDT) Magnesium 1.9 1.6 - 2.6 mg/dL [facility] Blood Venous blood specimen / Unknown 01/19/2025 10:35 AM EDT 01/19/2025 11:05 AM EDT us Zeina Stubbs MD LAB BLOOD ORDERAB LES Final Result [facility] [address] [place] [phone] * (ABNORMAL) Comprehensive Metabolic Panel (01/19/2025 10:35 AM EDT) Sodium 141 135 - 145 mmol/L [facility] Potassium 3.1(L) 3.3 - 5.1 mmol/L [facility] Chloride 103 96 - 108 mmol/L [facility] Carbon Dioxide 30(H) 22 - 29 mmol/L [facility] Anion Gap 11(L) 12 - 20 [facility] Urea Nitrogen (BUN) 10 9 - 16 mg/dL [facility] Creatinine, Serum 1.09 0.5 - 1.4 mg/dL [facility] Estimated Glomerular Filt Rate >60 [facility] Comment:Chronic Kidney Disea se: Estimated GFR < 60 mL/min/1.15p9Flcfgu Kidney Disease: Estimated GFR < 15 mL/min/1.73m2 Glucose 103 60 - 115 mg/dL [facility] Calcium 9.3 8.4 - 10.2 mg/dL [facility] Bilirubin, Total 0.5 0.0 - 1.0 mg/dL [facility] Aspartate Amino Transferase 74(H) 5 - 37 U/L [facility] Alanine Aminotransferase 153(H) 0 - 40 U/L [facility] Total Protein 7.7 6.5 - 8.0 g/dL [facility] Albumin Level 4.6 3.5 - 5.0 g/dL [facility] Alkaline Phosphatase 74 39 - 117 U/L [facility] Blood Venous blood specimen / Unknown 01/19/2025 10:35 AM EDT 01/19/2025 11:05 AM EDT Zeina Stubbs MD LAB BLOOD ORDERAB LES Final Result Performing Organization Address City/[facility] Co de Phone Number [facility] [address] [place] [phone] * Hepatitis C Antibody with Reflex to HCV, RNA, Quantitative, Real-Time PCR (05/13/2024 3:45 PM EST) Pathologist [facility] Hepatitis C Antibody Nonreactive Nonreactive [facility] Comment:Antibodies to HCV no t detected; does not exclude early acuteHCV infection. Blood Venous blood specimen / Unknown 05/13/2024 3:45 PM EST 05/13/2024 5:42 PM EST Zeina Stubbs MD LAB BLOOD ORDERAB LES Final Result Performing Organization Address [facility] Co de Phone Number [facility] [address] [place] [phone] * HIV-1/2 Antigen and Antibodies, Fourth Generation, with Reflexes (05/13/2024 3:45 PM EST) HIV AB/AG Nonreactive Nonreactive [facility] Comment:HIV-1 p24 Ag and/or HIV-1/HIV-2 Ab not detected.A test result that is nonreactive does not exclude thepossibility of exposure to or infection with HIV-1 and/orHIV-2. Nonreactive results in this assay for individualswith prior exposure to HIV-1 and/or HIV-2 may be due toantigen and antibody levels that are below the limit ofdetection of this assay.The [employer] HIV Ag/Ab Combo assay result andsupplemental assay results should be interpreted inconjunction with the patient's clinical presentation,history and other laboratory results. If the results areinconsistent with clinical evidence, additional testing issuggested to confirm the result. Blood Venous blood specimen / Unknown 05/13/2024 3:45 PM EST 05/13/2024 5:42 PM EST Zeina tSubbs MD LAB BLOOD ORDERAB LES Final Result [facility] [address] [place] [phone] * Hemoglobin A1c (05/13/2024 3:45 PM EST) Hemoglobin A1c 5.8 <6.0 % [facility] Comment:Hemoglobin A1C Refer ence Range Adults: 4.8 - 6.0 % Non diabetic: < 6.0 % Goal: < 7.0 %Additional Action Suggested: > 8.0 %Note: Hemoglobin A1c results are invalid for patients with abnormal amounts of HbF. Blood transfusions may impact the HbA1c concentration in the patient sample. Estimated Average Glucose 120 mg/dL [facility] Comment:eAG = Estimated ave rage glucose which is %A1C expressed asaverage glucose, using the formula of the U3Y-JaadswaJyeogjv Glucose study (ADAG), Diabetes Care, Vol.31,#8,Feb. 2007 Blood Venous blood specimen / Unknown 05/13/2024 3:45 PM EST 05/13/2024 5:42 PM EST us Zeina Stubbs MD LAB BLOOD ORDERAB LES Final Result Performing Organization Address City/[facility]/ZIP Co de Phone Number [facility] [address] [place] [phone] * (ABNORMAL) Lipid Panel, Standard (05/13/2024 3:45 PM EST) Triglycerides 78 <150 mg/dL [facility] Comment:Desirable Triglyceri de: less than 150 mg/dLBorderline High Triglyceride 150-199 mg/dLHigh Triglyceride: 200-499 mg/dLVery High Triglyceride: greater than or equal to 5OO mg/dL Cholesterol 182 <200 mg/dL [facility] Comment:Desirable Cholestero l: less than 200 mg/dLBorderline High Cholesterol: 200-239 mg/dLHigh Cholesterol: greater than 239 mg/dL LDL Cholesterol Calculated 106(H) <100 mg/dL [facility] Comment:Desirable LDL: less than 100 mg/dLNear Optimal/Above Optimal LDL: 110- 129 mg/dLBorderline High LDL: 130-159 mg/dLHigh LDL: 160-189 mg/dLVery High LDL: greater than or equal to 190 mg/dL HDL Cholesterol 61 >40 mg/dL [facility] Comment:Desirable HDL: great er than 40 mg/dL Note: This HDL assay may give artificially low results in patients with liver disease. Blood Venous blood specimen / Unknown 05/13/2024 3:45 PM EST 05/13/2024 5:42 PM EST us Zeina Stubbs MD LAB BLOOD ORDERAB LES Final Result Performing Organization Address City/[facility]/ZIP Co de Phone Number [facility] [address] [place] [phone] from Last 3 Months or Most Recently Relevant to Health Maintenance Insurance [facility] Care Teams Cobol Engineer Relationship Specialty Start Date End Date Zeina Phelps MD [address] [place] [address] [phone] PCP - General Internal Medicine 11/21/22
[2025-02-01 16:50] LABS: Alanine Aminotransferase 135 U/L (0-40); Albumin Level 4.3 g/dL (3.5-5.0); Alkaline Phosphatase 69 U/L (39-117); Anion Gap 11 (12-20); Aspartate Amino Transferase 64 U/L (5-37); Blood Urea Nitrogen 10 mg/dL (9-16); Calcium 8.9 mg/dL (8.4-10.2); Carbon Dioxide 27 mmol/L (22-29); Chloride 105 mmol/L (96-108); Estimated Glomerular Filt Rate > 60; Potassium 3.2 mmol/L (3.3-5.1); Sodium 140 mmol/L (135-145); Total Protein 7.1 g/dL (6.5-8.0)
== END 2025-02-01 13:17 | disposition home or self-care (01) ==
LOC: HO.HHCL 13:16
PROVIDERS: PCP Student in an Organized Health Care Education/Training Program; Visit Provider Student in an Organized Health Care Education/Training Program
DX: I10 Essential (primary) hypertension (principal)
CPT/HCPCS: 36415; 80053

== ENCOUNTER 2025-02-16 09:42 | Outpatient (REF) | payer OTHER, SELFPAY ==
--- OUTSIDE RECORDS SUMMARY | 2025-02-16 10:11 | XMS_ITS | Encounter Summary ---
Author Organization [employer] Address [address] [facility] 7t [place] [address] Care Team Providers Care Cost Control Specialist Name Role Phone Zeina Phelps MD Primary Care Pro vider Encounter Details Date Type Department Care Team (Latest Contact Info) Description 02/16/2025 Travel Social History Tobacco Use Types Packs/Day Years [...] as of this encounter Plan of Treatment Upcoming Encounters Date Type Department Care Team (Late st Contact Info) Description 03/24/2025 9:00 AM EDT Office Visit [facility] [address] [place] [phone] Zeina Phelps MD [address] [place] [phone] documented as of this encounter Visit Diagnoses Not on filedocumented in this encounter Additional Health Concerns Assessment Noted Time PHQ-9 Depression Total Score: 0 11/20/19 25 1:35 PM EDT documented as of this encounter Care Teams Cost Control Specialist Relationship Specialty Start Date End Date Zeina Phelps MD [address] [place] [address] [phone] PCP - General Internal Medicine 11/21/22 documented as of this encounter
[2025-02-16 11:48] LABS: Alanine Aminotransferase 112 U/L (0-40); Albumin Level 4.4 g/dL (3.5-5.0); Alkaline Phosphatase 68 U/L (39-117); Anion Gap 12 (12-20); Aspartate Amino Transferase 47 U/L (5-37); Blood Urea Nitrogen 12 mg/dL (9-16); Calcium 9.2 mg/dL (8.4-10.2); Carbon Dioxide 28 mmol/L (22-29); Chloride 106 mmol/L (96-108); Estimated Glomerular Filt Rate > 60; Potassium 3.8 mmol/L (3.3-5.1); Sodium 142 mmol/L (135-145); Total Protein 7.2 g/dL (6.5-8.0)
[2025-02-22 18:32] LABS: Plasma Renin Activity 0.58 ng/mL/h (0.25-5.82)
== END 2025-02-16 09:43 | disposition home or self-care (01) ==
LOC: HO.HHCL 09:42
PROVIDERS: PCP Student in an Organized Health Care Education/Training Program; Visit Provider Student in an Organized Health Care Education/Training Program
DX: E87.6 Hypokalemia (principal); R74.01 Elevation of levels of liver transaminase levels
CPT/HCPCS: 36415; 80053; 82088

== ENCOUNTER → 2025-05-30 08:18 | Outpatient (BNVA) | payer SELFPAY | PROVIDERS: PCP Student in an Organized Health Care Education/Training Program; Visit Provider Internal Medicine | DX: Z02.79 Encounter for issue of other medical certificate (principal) ==

== ENCOUNTER → 2025-05-31 09:31 | Outpatient (BNV) | payer OTHER, SELFPAY | PROVIDERS: PCP Student in an Organized Health Care Education/Training Program; Visit Provider Radiology Diagnostic Radiology | DX: K76.0 Fatty (change of) liver, not elsewhere classified (principal) | CPT/HCPCS: 76700 ==

== ENCOUNTER 2025-05-31 10:10 | Outpatient (REF) | payer OTHER, SELFPAY ==
--- NOTE | ~2025-05-31 | US_ITS ---
EXAMINATION: US ABDOMEN HISTORY: pt with ongoing transaminitis TECHNIQUE: Real-time grayscale ultrasound imaging of the abdomen was performed and images were reviewed. COMPARISON: There are no prior studies available for comparison. FINDINGS: Liver: The right lobe of the liver measures 14.6 cm in size. The left lobe of the liver measures 10.6 cm in size. The liver demonstrates mildly increased echotexture, consistent with steatosis. No focal mass or intrahepatic biliary ductal dilatation is identified. There is normal hepatopedal flow in the portal vein. Gallbladder and biliary tree: The gallbladder is unremarkable, without evidence of calculi, wall thickening, or pericholecystic fluid. There is no sonographic Daniels sign. The common bile duct is normal in caliber measuring 3 mm. Kidneys: The right kidney measures 9.5 cm in length. The left kidney measures 9.4 cm in length. The kidneys are unremarkable, without evidence of masses, hydronephrosis, or calculi. Pancreas: The pancreas obscured by bowel gas. Spleen: The spleen is normal in size and contour, measuring 8.9 cm in length. Abdominal aorta and inferior vena cava: The visualized portions of the abdominal aorta and inferior vena cava are normal in caliber. There is no free fluid in the abdomen. US/US abdomen complete IMPRESSION: Mild hepatic steatosis. The pancreas is not visualized. Electronically signed by: Tommy Betancourt MD 05/31/2025 09:58 AM EST
[2025-05-31 11:49] LABS: MANUAL DIFF FLAG NO
[2025-05-31 11:56] LABS: Hematocrit 45.7 % (42.0-52.0); Hemoglobin 15.6 g/dl (14.0-18.0); Imm Gran Abs Auto 0.02 X10*3/uL (0.00-0.03); Imm Gran Pct Auto 0.3 % (0.0-0.4); Lymphocytes Absolute Auto 3.6 X10*3/uL (1.2-4.9); Mean Corpuscular HGB Conc 34.1 g/dl (31.0-36.0); Mean Corpuscular Hemoglobin 28.8 pg (27.0-33.0); Mean Corpuscular Volume 84.5 fL (80.0-98.0); NRBC Abs Auto 0.000 X10*3/uL (0.0-0.012); NRBC Pct Auto 0.0 /100WBC (0.0-0.2); Platelet Count 304 X10*3/uL (160-400); Red Blood Count 5.41 X10*6/uL (4.60-5.80); White Blood Count 7.0 X10*3/uL (4.8-10.8)
[2025-05-31 12:04] LABS: Microalbum/Creatinine Ratio Ur 4.6 ug/mg cr (<30)
[2025-05-31 12:17] LABS: Alanine Aminotransferase 69 U/L (0-40); Albumin Level 4.6 g/dL (3.5-5.0); Alkaline Phosphatase 86 U/L (39-117); Anion Gap 10 (12-20); Aspartate Amino Transferase 41 U/L (5-37); Blood Urea Nitrogen 11 mg/dL (9-16); Calcium 9.4 mg/dL (8.4-10.2); Carbon Dioxide 30 mmol/L (22-29); Chloride 105 mmol/L (96-108); Cholesterol 179 mg/dL (<200); Estimated Glomerular Filt Rate > 60; HDL Cholesterol 58 mg/dL (>40); Potassium 3.8 mmol/L (3.3-5.1); Sodium 141 mmol/L (135-145); Total Protein 7.6 g/dL (6.5-8.0); Triglycerides 69 mg/dL (<150)
--- OUTSIDE RECORDS SUMMARY | 2025-05-31 12:25 | XMS_ITS | Encounter Summary ---
Author Organization [employer] Address [address] [place] [address] 7 [place] [address] Care Team Providers Care Bilingual Trainer Name Role Phone Zeina Phelps MD Primary Care Pro vider Reason for Visit * Reason Comments Med Refill Encounter Details Date Type Department Care Team ([facility] st Contact Info) Description 10/23/2022 Refill [facility] [address] [place] [address] [phone] David Martin MD [address] [place] [address] [phone] Hypertension, unspecified type Social History Tobacco Use [...] type documented in this encounter Care Teams Bilingual Trainer Relationship Specialty Start Date End Date Zeina Phelps MD [address] [place] [address] [phone] PCP - General Internal Medicine 11/21/22 documented as of this encounter
--- OUTSIDE RECORDS SUMMARY | 2025-05-31 12:25 | XMS_ITS | Encounter Summary ---
Author Organization [employer] Address [address] [facility] 7 [place] [address] Care Team Providers Care Vp Software Support Name Role Phone Zeina Phelps MD Primary Care Pro vider Encounter Details Date Type Department Care Team (Late st Contact Info) Description 01/19/2025 Orders Only [facility] [address] [place], [place] [phone] Zeina Phelps MD [address] [place] [address] Social History Tobacco Use Types Packs/Day Years [...] documented as of this encounter Care Teams Vp Software Support Relationship Specialty Start Date End Date Zeina Phelps MD [address] [place] [address] [phone] PCP - General Internal Medicine 11/21/22 documented as of this encounter
--- OUTSIDE RECORDS SUMMARY | 2025-05-31 12:25 | XMS_ITS | Clinical Summary ---
Author Organization [employer] Address [address] [facility] [address] [place] [address] Care Team Providers Care Credit Control Officer Name Role Phone Zeina Phelps MD Primary Care Pro vider Allergies Active Allergy Reactions Criticality Noted Date Comments Hydrochlorothiazide Other 03/25/2025 Stopped for hypokalemia No allergy Medications amLODIPine-benaz epril (Lotrel) 10-40 MG capsuleIndicatio ns:Hypertension, unspecified type TAKE 1 CAPSULE BY MOUTH EVERY DAY 90 capsule 03/15/2025 Active metoprolol succinate XL (Toprol XL) 25 MG 24 hr tablet Take 1 tablet (25 mg) by mouth Once per day. Do not crush or chew. 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 since 2020 Screening Quantiferon came [...] EDT): Pt is from DR living in [facility] since 2020 Screening Quantiferon came [...] Encounters Date Type Department Care Team Description 05/16/2025 Telephone [facility] [address] [place] [phone] Zeina Phelps MD tom recall 03/24/2025 9:00 AM EDT Office Visit [facility] [address] [place] [phone] Zeina Phelps MD Annual physical exam (Primary Dx); Hypertension, unspecified type; Overweight (BMI 25.0-29.9); Transaminitis; Health care maintenance 03/24/2025 Travel 03/23/2025 Telephone [facility] [address] [place] [phone] Zeina Phelps MD chart prep 03/17/2025 Patient Outreach [facility] [address] [place], [place] [phone] Zeina Phelps MD Pre-visit Planning (SDOH was already completed) 03/14/2025 Refill [facility] [address] [place] [address] Zeina Phelps MD Hypertension, unspecified type from Last 3 Months Immunizations Immunization Administration [...] 0 (1 standard drink = 0.6 oz pure alcohol) hx of heavy drinking stopped 8 y ago Depression Answer Date Recorded Patient Health Questionnaire-9 Score 0 03/24/2025 Patient Health Questionnaire-9 Score 0 03/24/2025 Last PHQ-9: Questionnaire Data Not on file 0 03/24/2025 Housing Stability Answer Date Recorded What is [...] Date Recorded Patient Health Questionnaire-2 Score 0 03/24/2025 Internet Access Answer Date Recorded Internet Access [...] Sign Reading Time Taken Comments Blood Pressure 130/86 03/24/2025 9:04 AM EDT Pulse 71 03/24/2025 9:04 AM EDT Temperature 36 C (96.8 F) 03/24/2025 9:04 AM EDT Respiratory Rate 20 03/24/2025 9:04 AM EDT Oxygen Saturation 98% 03/24/2025 9:04 AM EDT Inhaled Oxygen Concentration - - Weight 80.7 kg (178 lb) 03/24/2025 9:04 AM EDT Height 165.1 cm (5' 5 ) 03/24/2025 9:04 AM EDT Body Mass Index 29.62 03/24/2025 9:04 AM EDT Plan of Treatment Health Maintenance Due Date Last Done Comments Family Planning (PISQ) 02/11/1996 HPV Vaccines (1 - Male 3-dos e series) 02/11/1996 Hepatitis B Vaccines (3 of 3 - 19+ 3-dose series) 05/23/2023 12/24/2022, 11/20/2022 COVID-19 Vaccine (2 - 2024-2 6 season) 2025 05/20/2024 Influenza Vaccine (#1) 2025 03/18/2024 Alcohol/Substance Use Screening 11/19/2025 11/19/2024 SDOH Screening 11/19/2025 11/19/2024 Disability Screening 01/21/2026 01/21/2025 Depression Screening 03/24/2026 03/24/2025, 03/24/2025 Tobacco Screening 03/24/2026 03/24/2025 Diabetes: Hemoglobin A1C 05/31/202605/31/ 025, 05/13/2024, 11/21/2022 Lipid Panel 05/31/2030 05/31/2025, 05/13/2024, 11/21/2022 Zoster Vaccines (1 of 2) 2031 DTaP/Tdap/Td Vaccines (2 - T d or Tdap) 11/20/2032 11/20/2022 RSV Patients and Patients Aged 60 years or older (1 - 1-dose 75+ series) 02/11/2056 HIV Screening Completed 05/13/2024, 11/21/2022 Hepatitis C Screening Completed 05/13/2024 , 11/21/2022 HIB Vaccines Aged Out No longer eligi [...] Procedure Name Priority Date/Time Associated Diagnosis Comments HEMOGLOBIN A1C Routine 05/31/2025 10:19 AM EST Annual physical exam COMPREHENSIVE METABOLIC PANEL Routine 05/31/2025 10:19 AM EST Annual physical exam CBC WITH AUTO DIFFERENTIAL Routine 05/31/2025 10:19 AM EST Annual physical exam ALBUMIN, RANDOM URINE W/CREATININE Routine 05/31/2025 10:19 AM EST Annual physical exam LIPID PANEL, STANDARD Routine 05/31/2025 10:19 AM EST Transaminitis US ABDOMEN COMPLETE Routine 05/31/2025 9 :39 AM EST Transaminitis HEPATITIS C AB W/REFL TO HCV RNA, QN, PCR Routine 05/13/2024 3:45 PM EST Annual physical exam HIV 1/2 ANTIGEN/ANTIBODY, FOURTH GENERATION W/RFL Routine 05/13/2024 3:45 PM EST Annual physical exam from Last 3 Months or Most Recently Relevant to Health Maintenance Results * Albumin, Random Urine W/Creatinine (05/31/2025 10:19 AM EST) Creatinine, Urine 150.07 mg/dL [facility] Microalbumin Urine 7.0 mg/L [facility] Microalbum Creatinine Ratio Ur 4.6 <30 ug/mg cr [facility] Comment:Albumin/Creatinine R atio Reference Ranges: Normal: < 30 ug/mg creatinine Microalbuminuria: 30 - 300 ug/mg creatinineClinical Albuminuria: > 300 ug/mg creatinine Urine (Urine, Random) 05/31/2025 10:19 AM EST 05/31/2025 11:19 AM EST us Zeina Stubbs MD LAB URINE ORDERAB LES Final Result [facility] [address] [place] [phone] [phone] * (ABNORMAL) CBC auto differential (05/31/2025 10:19 AM EST) White Blood Count 7.0 4.8 - 10.8 X10*3/uL [facility] Red Blood Count 5.41 4.60 - 5.80 X10*6/uL [facility] Hemoglobin 15.6 14.0 - 18.0 g/dl [facility] Hematocrit 45.7 42.0 - 52.0 % [facility] Mean Corpuscular Volume 84.5 80.0 - 98.0 fL [facility] Mean Corpuscular Hemoglobin 28.8 27.0 - 33.0 pg [facility] Mean Corpuscular HGB Conc 34.1 31.0 - 36.0 g/dl [facility] Red Cell Distribution Width 12.4 11.0 - 16.0 % [facility] Platelet Count 304 160 - 400 X10*3/uL [facility] Mean Platelet Volume 11.1 9.4 - 12.4 fL [facility] Neutrophils Percent Auto 39.2(L) 45 - 73 % [facility] Imm Gran Pct Auto 0.3 0.0 - 0.4 % [facility] Lymphocytes Percent Auto 51.1(H) 20 - 40 % [facility] Monocytes Percent Auto 6.1 2 - 11 % [facility] Eosinophils Percent Auto 2.6 0 - 4 % [facility] Basophils Percent Auto 0.7 0 - 2 % [facility] NRBC Pct Auto 0.0 0.0 - 0.2 /100WBC [facility] Neutrophils Absolute Auto 2.8 2.0 - 8.3 x10*3/uL [facility] Imm Gran Abs Auto 0.02 0.00 - 0.03 X10*3/uL [facility] Lymphocytes Absolute Auto 3.6 1.2 - 4.9 X10*3/uL [facility] Monocytes Absolute Auto 0.4 0.1 - 1.2 X10*3/uL [facility] Eosinophils Absolute Auto 0.2 0.0 - 0.4 X10*3/uL [facility] Basophils Absolute Auto 0.1 0.0 - 0.2 X10*3/uL [facility] NRBC Abs Auto 0.000 0.0 - 0.012 X10*3/uL [facility] Blood Venous blood specimen / Unknown 05/31/2025 10:19 AM EST 05/31/2025 11:41 AM EST us Zeina Stubbs MD LAB BLOOD ORDERAB LES Final Result [facility] [address] [place] [phone] * Hemoglobin A1c (05/31/2025 10:19 AM EST) Hemoglobin A1c 6.0 <6.0 % [facility] Comment:Hemoglobin A1C Refer ence Range Adults: 4.8 - 6.0 % Non diabetic: < 6.0 % Goal: < 7.0 %Additional Action Suggested: > 8.0 %Note: Hemoglobin A1c results are invalid for patients with abnormal amounts of HbF. Blood transfusions may impact the HbA1c concentration in the patient sample. Estimated Average Glucose 126 mg/dL [facility] Comment:eAG = Estimated ave rage glucose which is %A1C expressed asaverage glucose, using the formula of the E0F-JblkrocTmimwoj Glucose study (ADAG), Diabetes Care, Vol.31,#8,2007 Blood Venous blood specimen / Unknown 05/31/2025 10:19 AM EST 05/31/2025 11:41 AM EST us Zeina Stubbs MD LAB BLOOD ORDERAB LES Final Result [facility] [address] [place] [phone] * US Abdomen Complete (05/31/2025 9:39 AM EST) Anatomical Region Laterality Modality Abdomen Ultrasound 05/31/2025 9:39 AM EST Narrative 05/31/2025 10:00 AM EST [address] [address] Ultrasound Report Signed Patient: Austin Rooney MR# : [id number] : 1980 Acct:[id number] Age/Sex: 45 / M ADM Date: 04/06/25 Loc: HO.US Attending Dr: Zeina Stubbs MD Ordering Physician: Zeina Phelps MD Date of Service: 05/31/25 Procedure(s): US abdomen complete Accession Number(s): [id number] cc: Zeina Phelps MD Reason for Exam: pt with ongoing transaminitis EXAMINATION: US ABDOMEN HISTORY: pt with ongoing transaminitis TECHNIQUE: Real-time grayscale ultrasound imaging of the abdomen was performed and images were reviewed. COMPARISON: There are no prior studies available for comparison. FINDINGS: Liver: The right lobe of the liver measures 14.6 cm in size. The left lobe of the liver measures 10.6 cm in size. The liver demonstrates mildly increased echotexture, consistent with steatosis. No focal mass or intrahepatic biliary ductal dilatation is identified. There is normal hepatopedal flow in the portal vein. Gallbladder and biliary tree: The gallbladder is unremarkable, without evidence of calculi, wall thickening, or pericholecystic fluid. There is no sonographic Daniels sign. The common bile duct is normal in caliber measuring 3 mm. Kidneys: The right kidney measures 9.5 cm in length. The left kidney measures 9.4 cm in length. The kidneys are unremarkable, without evidence of masses, hydronephrosis, or calculi. Pancreas: The pancreas obscured by bowel gas. Spleen: The spleen is normal in size and contour, measuring 8.9 cm in length. Abdominal aorta and inferior vena cava: The visualized portions of the abdominal aorta and inferior vena cava are normal in caliber. There is no free fluid in the abdomen. US/US abdomen complete IMPRESSION: Mild hepatic steatosis. The pancreas is not visualized. Electronically signed by: Tommy Betancourt MD 05/31/2025 09:58 AM EST RP Dictated By: Tommy Betancourt MD Signed By: <Electronically signed by Tommy Betancourt MD in OV> 05/31/2558 DD/ 8 TD/TT: 05/31/25950 Party Director: Procedure Note Donotuseinterpreter, Image - 05/31/2025 [place] [id number] Ultrasound Report Signed Patient: Austin Rooney# : [id number] : 1980Acct:[id number] Age/Sex: 45 / MADM Date: 04/06/25 Loc: HO.US Attending Dr: Zeina Stubbs MD Ordering Physician: Zeina Phelps MD Date of Service: 05/31/25 Procedure(s): US abdomen complete Accession Number(s): [id number] cc: Zeina Phelps MD Reason for Exam: pt with ongoing transaminitis EXAMINATION: US ABDOMEN HISTORY: pt with ongoing transaminitis TECHNIQUE: Real-time grayscale ultrasound imaging of the abdomen was performed and images were reviewed. COMPARISON: There are no prior studies available for comparison. FINDINGS: Liver: The right lobe of the liver measures 14.6 cm in size. The left lobe of the liver measures 10.6 cm in size. The liver demonstrates mildly increased echotexture, consistent with steatosis. No focal mass or intrahepatic biliary ductal dilatation is identified. There is normal hepatopedal flow in the portal vein. Gallbladder and biliary tree: The gallbladder is unremarkable, without evidence of calculi, wall thickening, or pericholecystic fluid. There is no sonographic Daniels sign. The common bile duct is normal in caliber measuring 3 mm. Kidneys: The right kidney measures 9.5 cm in length. The left kidney measures 9.4 cm in length. The kidneys are unremarkable, without evidence of masses, hydronephrosis, or calculi. Pancreas: The pancreas obscured by bowel gas. Spleen: The spleen is normal in size and contour, measuring 8.9 cm in length. Abdominal aorta and inferior vena cava: The visualized portions of the abdominal aorta and inferior vena cava are normal in caliber. There is no free fluid in the abdomen. US/US abdomen complete IMPRESSION: Mild hepatic steatosis. The pancreas is not visualized. Electronically signed by: Tommy Betancourt MD 05/31/2025 09:58 AM EST RP Dictated By: Tommy Betancourt MD Signed By: <Electronically signed by Tommy Betancourt MD in OV> 05/31/25 0958 DD/ TD/TT: 05/31/25 0951 Party Director: Zeina Stubbs MD IMG US PROCEDURES Final Result * Hepatitis C Antibody with Reflex to HCV, RNA, Quantitative, Real-Time PCR (05/13/2024 3:45 PM EST) Pathologist [facility] Hepatitis C Antibody Nonreactive Nonreactive [facility] Comment:Antibodies to HCV no t detected; does not exclude early acuteHCV infection. Blood Venous blood specimen / Unknown 05/13/2024 3:45 PM EST 05/13/2024 5:42 PM EST Zeina Stubbs MD LAB BLOOD ORDERAB LES Final Result [facility] [address] [place] [phone] * HIV-1/2 Antigen and Antibodies, Fourth Generation, with Reflexes (05/13/2024 3:45 PM EST) Pathologist [facility] HIV AB/AG Nonreactive Nonreactive [facility] Comment:HIV-1 p24 Ag and/or HIV-1/HIV-2 Ab not detected.A test result that is nonreactive does not exclude thepossibility of exposure to or infection with HIV-1 and/orHIV-2. Nonreactive results in this assay for individualswith prior exposure to HIV-1 and/or HIV-2 may be due toantigen and antibody levels that are below the limit ofdetection of this assay.The hiyalifeniGlokalise HIV Ag/Ab Combo assay result andsupplemental assay results should be interpreted inconjunction with the patient's clinical presentation,history and other laboratory results. If the results areinconsistent with clinical evidence, additional testing issuggested to confirm the result. Blood Venous blood specimen / Unknown 05/13/2024 3:45 PM EST 05/13/2024 5:42 PM EST us Zeina Stubbs MD LAB BLOOD ORDERAB LES Final Result [facility] [address] [place] [phone] from Last 3 Months or Most Recently Relevant to Health Maintenance Insurance [facility] Care Teams Credit Control Officer Relationship Specialty Start Date End Date Zeina Phelps MD [address] [place] [phone] PCP - General Internal Medicine 11/21/22
--- OUTSIDE RECORDS SUMMARY | 2025-05-31 12:26 | XMS_ITS | Encounter Summary ---
Author Organization [employer] Address [address] [facility] 7 [place] [address] Care Team Providers Care Stereo Operator Name Role Phone Zeina Phelps MD Primary Care Pro vider Encounter Details Date Type Department Care Team (Late st Contact Info) Description 02/16/2025 Orders Only [facility] [address] [place] [address] Zeina Phelps MD [address] [place] [address] Transaminitis (Primary Dx) Social History Tobacco Use Types Packs/Day Years [...] as of this encounter Plan of Treatment Pending Results Name Type Priority Associated Diagnoses Date /Time Lipid Panel, Standard Lab Routine Transaminitis 05/31/2025 10:19 AM EST Scheduled Orders Name Type Priority Associated Diagnoses Orde r Schedule Comprehensive Metabolic Panel Lab Routine Transaminitis Expected: 02/16/2025 (Approximate), Expires: 02/16/2026 Hepatitis B surface antigen, EIA Lab Routine Transaminitis Expected: 02/16/2025 (Approximate), Expires: 02/16/2026 Hepatitis C Antibody with Reflex to HCV, RNA, Quantitative, Real-Time PCR Lab Routine Transaminitis Expected: 02/16/2025 (Approximate), Expires: 02/16/2026 HIV-1/2 Antigen and Antibodies, Fourth Generation, with Reflexes Lab Routine Transaminitis Expected: 02/16/2025 (Approximate), Expires: 02/16/2026 Syphilis Screen Lab Routine Transaminitis Expected: 02/16/2025 (Approximate), Expires: 02/16/2026 TSH with Reflex to Free T4 Lab Routine Transaminitis Expected: 02/16/2025 (Approximate), Expires: 02/16/2026 documented as of this encounter Procedures Procedure Name Priority Date/Time Associated Diagnosis Comments LIPID PANEL, STANDARD Routine 05/31/2025 10:19 AM EST Transaminitis documented in this encounter Visit Diagnoses Diagnosis Transaminitis- Primary Nonspecific elevation of levels of transaminase or lactic acid dehydrogenase (LDH) documented in this encounter Additional Health Concerns Assessment Noted Time PHQ-9 Depression Total Score: 0 11/20/19 25 1:35 PM EDT documented as of this encounter Care Teams Stereo Operator Relationship Specialty Start Date End Date Zeina Phelps MD [address] [place] [phone] PCP - General Internal Medicine 11/21/22 documented as of this encounter
[2025-05-31 12:36] LABS: HBsAGNum1 0.38 S/CO (0.00-0.99); HIV Num 1 0.08 S/CO (0.00-0.99); Hepatitis B Surface Antigen Negative (Negative); ~HepC Num1 0.15 S/CO (0.00-0.79); ~Hepatitis C Antibody Nonreactive (Nonreactive)
[2025-05-31 12:37] LABS: Syphilis Screen Nonreactive (Nonreactive)
[2025-05-31 13:39] LABS: CT PCR Urine NOT DETECTED (Not Detect.); NG PCR Urine NOT DETECTED (Not Detect.)
== END 2025-05-31 10:11 | disposition home or self-care (01) ==
LOC: HO.HHCL 10:10
PROVIDERS: PCP Student in an Organized Health Care Education/Training Program; Visit Provider Student in an Organized Health Care Education/Training Program
DX: Z00.00 Encounter for general adult medical examination without abnormal findings (principal); R74.01 Elevation of levels of liver transaminase levels; Z11.4 Encounter for screening for human immunodeficiency virus [HIV]; Z20.2 Contact with and (suspected) exposure to infections with a predominantly sexual mode of transmission; Z11.59 Encounter for screening for other viral diseases
CPT/HCPCS: 76700; 80053; 80061; 82043; 82570; 83036; 84443; 85025; 86780; 86803; 87340; 87389; 87491; 87591